=== PATIENT | male | born 1995 | race Caucasian/White ===

== ENCOUNTER 2016-11-15 20:04 | Emergency (ER) | payer OTHER ==
[~2016-11-15] VITALS: Ht 175.3 cm; Wt 82.7 kg
[2016-11-15 20:09] VITALS: TEMP 37.1; Ht 175.3 cm; Wt 82.7 kg
[2016-11-15] MEDS ORDERED: ACETAMINOPHEN 500 MG TAB PO STA (20:22)
--- NOTE | 2016-11-15 20:38 | EMERGENCY ROOM VISIT NOTE ---
History Report prepared by Kaylene: Rosalio Magana Under the Supervision of: Dr. Constantino Campos D.O. First contact with patient: 20:16 Chief Complaint: TESTICULAR PAIN Stated Complaint: RT TESTICLE FEELS SWOLLEN AND STUCK IN WEIRD SPOT History of Present Illness The patient is a 20 year old male who presents to the Emergency Room with complaints of constant right testicle discomfort starting two days ago. He rates his discomfort as a 6/10 in severity. He states that his testicle feels as if it is swollen and is in a "weird position". The patient states that his testicle is painful intermittently, which he describes as a "twinge". He admits that he takes Prevacid and anxiety medication. The patient states that his PCP is Dr. Kulwinder Hilario at [facility]. He states that he is not sexually active. The patient states that he occasionally drinks alcohol. The patient denies any abdominal pain, discharge, redness, infection in his testicle, any previous surgeries, and smoking. Source of History: patient Onset: two days ago Position: other (right testicle) Symptom Intensity: 6/10 Quality: other (twinge) Timing: constant Associated Symptoms: No abdominal pain Review of Systems See HPI for pertinent positives & negatives. A total of 10 systems reviewed and were otherwise negative. Past Medical & Surgical Medical Problems: (1) Anxiety Family History Patient reports no known family medical history. Social History Smoking Status: Never Smoker Alcohol Use: occasionally Marital Status: single Current/Historical Medications Scheduled Ciprofloxacin Hcl (Cipro), 500 MG PO BID Escitalopram Oxalate (Lexapro), 20 MG PO DAILY Lansoprazole (Prevacid), 30 MG PO DAILY Allergies Coded Allergies: No Known Allergies (Unverified , 11/15/16) Physical Exam Vital Signs Date Time Temp Pulse Resp B/P (MAP) Pulse Ox O2 Delivery O2 Flow Rate FiO2 11/15/16 21:38 87 18 121/78 99 11/15/16 20:09 37.1 102 18 136/72 97 Room Air Physical Exam GENERAL: Patient is awake, alert, and in no acute distress. Patient is resting comfortably and somewhat anxious appearing. EYES: The conjunctivae are clear. The pupils are round and reactive. EARS, NOSE, MOUTH AND THROAT: The nose is without any evidence of any deformity. Mucous membranes are moist tongue is midline NECK: The neck is nontender and supple. RESPIRATORY: Normal respiratory effort is noted there is no evidence of wheezing rhonchi or rales CARDIOVASCULAR: Regular rate and rhythm noted there no murmurs rubs or gallops normal S1 normal S2 GASTROINTESTINAL: The abdomen is soft. Bowel sounds are present in all quadrants. Abdomen is nontender MUSCULOSKELETAL/EXTREMITIES: There is no evidence of gross deformity full range of motion is noted in the hips and shoulders : circumcised male genitalia noted. Testicles were distended bilaterally. Minimal tenderness over right epididymis. No significant swelling noted. SKIN: There is no obvious evidence of any rash. There are no petechiae, pallor or cyanosis noted. NEUROLOGIC: Patient is awake alert and oriented x3. Medical Decision & Procedures ER Provider Diagnostic Interpretation: Radiology results as stated below per my review and radiologist interpretation: (TESTICULAR) SCROTUM-CONT CLINICAL HISTORY: 20 years-old Male with ight testicle pain. Acute right-sided testicular pain. COMPARISON STUDY: None available TECHNIQUE: Real-time, grayscale, and color Doppler sonography of the testes and scrotum is performed. Images are reviewed in the transverse and longitudinal planes. FINDINGS: RIGHT HEMISCROTUM: The right testis measures 4.2 x 1.9 x 2.7 cm and the parenchyma appears unremarkable. No intratesticular mass is seen. Normal-appearing arterial inflow is present within the right testicle. The right epididymal head appears normal. No varicocele or hydrocele is identified. LEFT HEMISCROTUM: The left testis measures 4.2 x 1.9 x 2.8 cm and the parenchyma appears unremarkable. No intratesticular mass is seen. Normal-appearing arterial inflow is present within the left testicle. The left epididymal head appears normal. No varicocele or hydrocele is identified. IMPRESSION: Unremarkable sonographic appearance of the bilateral testicles without evidence of torsion, mass or orchitis. The above report was generated using voice recognition software. It may contain grammatical, syntax or spelling errors. Electronically signed by: David Reyes M.D. 11/15/2016 9:06 PM Dictated Date/Time: 11/15/2016 9:04 PM Medications Administered Medications (Trade) Dose Ordered Sig/Nae Route Start Time Stop Time Status Last Admin Dose Admin Acetaminophen (Tylenol Tab) 1,000 mg NOW STAT PO 11/15/16 20:22 11/15/16 20:23 DC 11/15/16 20:32 1,000 MG Ciprofloxacin (Cipro 500MG Home Pack) 1 homepack UD ONCE PO 11/15/16 21:30 11/15/16 21:31 DC 11/15/16 21:23 1 HOMEPACK Ciprofloxacin (Cipro Tab) 500 mg NOW STAT PO 11/15/16 21:16 11/15/16 21:18 DC 11/15/16 21:23 500 MG ED Course 2019: The patient was evaluated in room A04B. A complete history and physical examination were performed. 2021: Ordered Tylenol Tab 1000 mg PO. 2115: Ordered Cipro Tab 500 mg PO. 2129: Ordered Ciprofloxacin 1 homepack PO. 2130: Upon reevaluation, the patient is resting comfortably. I discussed the results and treatment plan with him. The patient verbalized agreement of the treatment plan. He was discharged home. Medical Decision Differential diagnosis: Etiologies such as torsion, mass, infection, hernia, hydrocele, epididymitis, trauma, intra-abdominal process, as well as others were entertained. Nursing notes reviewed. The patient is a 20-year-old male who presented to the emergency department for an evaluation of right testicular pain. The patient did not appear to have torsion by physical exam or by ultrasound. He did have tenderness over the epididymis and I feel this could be clinically consistent with epididymitis. He was started on antibiotic. I discussed the patient's radiographic studies with him. He was encouraged to continue using Motrin and Tylenol for pain and follow- up with [facility] this week for reevaluation. He was also encouraged return to the emergency apartment immediately if symptoms change worsen or the need arises. Medication Reconcilliation Current Medication List: was personally reviewed by me Blood Pressure Screening Patient's blood pressure: Elevated blood pressure Blood pressure disposition: Elevated BP felt to be situational Impression Primary Impression: Epididymitis Scribe Attestation The scribe's documentation has been prepared under my direction and personally reviewed by me in its entirety. I confirm that the note above accurately reflects all work, treatment, procedures, and medical decision making performed by me. Departure Information Dispostion Home / Self-Care Prescriptions Ciprofloxacin Hcl (CIPRO) 500 Mg Tab 500 MG PO BID, #28 TAB Prov: Constantino Campos, DO 11/15/16 Referrals Kulwinder Grant III, M.D. (PCP) Forms HOME CARE DOCUMENTATION FORM, IMPORTANT VISIT INFORMATION, WORK / SCHOOL INSTRUCTIONS Patient Instructions Epididymitis Dc, My [facility] Additional Instructions Follow-up with [facility] this week for reevaluation. Continue using Motrin and Tylenol as instructed for mild pain. I would recommend avoiding any strenuous activity including heavy lifting. Return to the emergency department immediately if symptoms change worsen or the need arises.
--- NOTE | 2016-11-15 21:07 | DIAGNOSTIC IMAGING REPORT ---
(TESTICULAR) SCROTUM-CONT CLINICAL HISTORY: 20 years-old Male with ight testicle pain. Acute right-sided testicular pain. COMPARISON STUDY: None available TECHNIQUE: Real-time, grayscale, and color Doppler sonography of the testes and scrotum is performed. Images are reviewed in the transverse and longitudinal planes. FINDINGS: RIGHT HEMISCROTUM: The right testis measures 4.2 x 1.9 x 2.7 cm and the parenchyma appears unremarkable. No intratesticular mass is seen. Normal-appearing arterial inflow is present within the right testicle. The right epididymal head appears normal. No varicocele or hydrocele is identified. LEFT HEMISCROTUM: The left testis measures 4.2 x 1.9 x 2.8 cm and the parenchyma appears unremarkable. No intratesticular mass is seen. Normal-appearing arterial inflow is present within the left testicle. The left epididymal head appears normal. No varicocele or hydrocele is identified. IMPRESSION: Unremarkable sonographic appearance of the bilateral testicles without evidence of torsion, mass or orchitis. The above report was generated using voice recognition software. It may contain grammatical, syntax or spelling errors. Electronically signed by: David Reyes M.D. 11/15/2016 9:06 PM Dictated Date/Time: 11/15/2016 9:04 PM
[2016-11-15] MEDS ORDERED: CIPROFLOXACIN 500 MG TAB PO STA (21:16)
[2016-11-15] MEDS ORDERED: ESCI1TAB10 PO (21:23)
[2016-11-15] MEDS ORDERED: LANS30CA12 PO (21:23)
[2016-11-15] MEDS ORDERED: CIPR-255 PO (21:30)
[2016-11-15] MEDS ORDERED: CIPROFLOXACIN 500MG HOME PACK PO ONE (21:30)
[2016-11-15 21:38] VITALS: BP 121/78; PULSE 87; O2SAT 99
== END 2016-11-15 21:39 | disposition home or self-care (01) ==
LOC: C.EDB 20:08 → C.EDA 21:39
DX: N45.1 Epididymitis (principal); F41.9 Anxiety disorder, unspecified; Z79.899 Other long term (current) drug therapy